=== PATIENT | female | born 1965 | race Caucasian/White ===

== ENCOUNTER 2018-09-01 03:26 | Emergency (ER) | payer BC ==
[2018-09-01] MEDS ORDERED: ONDANSETRON HCL/PF 4 MG/ 2ML VIAL IVP ONE (03:30)
[2018-09-01] MEDS ORDERED: 0.9 % SODIUM CHLORIDE 1,000 ML IV ONE (03:30)
[2018-09-01] MEDS ORDERED: KETOROLAC TROMETHAMINE 30 MG/1ML VIAL IVP ONE (03:30)
[2018-09-01] MEDS ORDERED: fentaNYL CITRATE/PF 100 MCG/2 ML INJ. IVP ONE (03:36)
--- NOTE | 2018-09-01 03:56 | ED Physician Documentation ---
General Adult - HISTORIAN Historian: patient - HPI Stated Complaint: rt side low abd pain Chief Complaint: Abdominal Pain Additional Information: Intro self as CRECHE ATTENDANT. pt presents to the ED via POV c/o RLQ pain x 3 days. Pt reports she passed a kidney stone 3 days ago. 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 pt took ibuprofen at 2100 with some improvement. pt reports chills. pt denies hx of stones previous pt denies current chest pain, dyspnea, syncope/near syncope, headache, dizziness, visual disturbances, n/v/d, fever, rash, sick contacts, trauma. melena or hematochezia, bleeding or easy bruising, change in bowel function. anx iety or depression. ROS Negative unless otherwise specified. - ROS CONST: no problems - PAST HX Past History: other (gerd) Surgeries/Procedures: hysterectomy, other (tubal ligation, hernia, tonsillectomy) Allergies/Adverse Reactions: Allergies Allergy/AdvReac Type Severity Reaction Status Date / Time No Known Allergies Allergy Verified 09/01/18 04:51 Home Medications: Ambulatory Orders Medication Instructions Recorded Aspirin [Adult Aspirin Regimen] 81 mg PO DAILY 09/01/18 Cholecalciferol [Vitamin D-3] 10,000 units PO QDAY 09/01/18 Omeprazole 20 mg PO DAILY 09/01/18 - SOCIAL HX Smoking History: non-smoker Alcohol Use: none Drug Use: none - FAMILY HX Family History: No - REVIEWED ASSESSMENTS Nursing Assessment Reviewed: Yes Vitals Reviewed: Yes Progress - Progress Progress: 0430 pain improved after fentanyl 0530: Dr Garsia urologist accepted pt for transfer to [facility] via ground ALS 0540 pt reports increased pain. Dilaudid 1 mg ordered. ED Results Lab/Radiology - Radiology Radiology Impressions: Report Submission Date: Sep 01, 2018 4:55:48 AM REDUCING SALON ATTENDANT Patient Study Name: GISSELL VELAZQUEZ Date: Sep 01, 2018 4:34:30 AM REDUCING SALON ATTENDANT Modality Type: CT\SR Gender: F Description: CT ABD PELVIS W/ CON : 67 Institution: [facility] Physician: AJ JONES CT of the abdomen and pelvis with contrast Clinical history: Right lower quadrant and right back pain intermittently for 2 days. Contrast administered: 95 mL of Omnipaque. Technique: CT of the abdomen and pelvis is performed with intravenous infusion of contrast. Sagittal and coronal reconstructions were performed by the technologist. Findings: There is minimal atelectasis in the lung bases. Spleen demonstrates normal attenuation without focal defect. Liver is hypodense consistent with steatosis. There is a focal area of greater hypodensity left hepatic lobe possibly representing focal fatty infiltration. Liver is otherwise unremarkable. Gallbladder is normally distended. There is no pancreatic or adr enal abnormality. Left kidney and collecting system are unremarkable. There is right renal cyst and right hydronephrosis with a 7 mm stone at the right ureteropelvic junction. The ureter distal to this is of normal caliber. Bladder is unremarkable. Appendix is visualized and is within normal limits. Gas and stool are present in the colon. There is no significant free fluid in the pelvis or abdomen. The uterus is surgically absent. Impression: 1. 7 mm stone at the right ureteropelvic junction with right obstructive uropathy. 2. Right renal cyst. 3. Hepatic steatosis. 4. Appendix. Electronically signed on Sep 01, 2018 4:55:48 AM REDUCING SALON ATTENDANT by: José Luis Alvarez - Orders Orders: ED Orders Category Date Time Status Place IV Lock 1T Care 09/01/18 03:32 Active CBC/PLATELET/DIFF Routine Lab 09/01/18 03:30 Received CMP Routine Lab 09/01/18 03:30 Received URINALYSIS Routine Lab 09/01/18 Ordered URINE HCG [URINE HCG] Stat Lab 09/01/18 Uncollected 0.9 % Sodium Chloride [Normal Saline] 1,000 ml Med 09/01/18 03:30 Active IV NOW Ketorolac Tromethamine [Toradol] Med 09/01/18 03:30 Discontinued 30 mg IVP NOW ONE Ondansetron HCl/Pf [Zofran 4 mg/2 ml] Med 09/01/18 03:30 Discontinued 4 mg IVP NOW ONE fentaNYL CITRATE/PF [Duragesic] Med 09/01/18 03:36 Discontinued 100 mcg IVP NOW ONE General Adult Physical Exam - PHYSICAL EXAM GENERAL APPEARANCE: mild distress EENT: eye inspection normal, ENT inspection normal, pharynx normal, no signs of dehydration NECK: normal inspection, thyroid normal RESPIRATORY: no resp distress, chest non-tender, breath sounds normal CVS: reg rate & rhythm, heart sounds normal, equal pulses, no murmur, no gallop, PMI nml, no JVD, no friction rub, 24 ABDOMEN: soft, no organomegaly, normal bowel sounds, no abdominal bruit, no distension. No: tenderness BACK: normal inspection, no CVA tenderness SKIN: normal color, diaphoresis, other (warm) EXTREMITIES: non-tender, normal range of motion, no evidence of injury, no edema NEURO: oriented X3, motor nml, sensation nml, mood/affect nml Discharge Clincal Impression: Obstructive uropathy Urolithiasis Qualifiers: Urinary calculus location: upper urinary tract Qualified Code(s): N20.9 - Urinary calculus, unspecified Condition: Stable Disposition: [facility]FER [facility] Palliative/Comfort Care: Palliative Care Decision to Admit: NO Date of Decison to Admit: 09/01/18 Decision Time: 05:44
--- NOTE | 2018-09-01 04:57 | Diagnostic Imaging Report ---
KAREN AJ [facility] [id number] [facility] [address] [address] Report Submission Date: Sep 01, 2018 4:55:48 AM HYDROMETER FINISHER Patient Study Name: GISSELL VELAZQUEZ Date: Sep 01, 2018 4:34:30 AM HYDROMETER FINISHER Modality Type: CT\SR Gender: F Description: CT ABD PELVIS W/ CON : 67 Institution: [facility] Physician: AJ JONES CT of the abdomen and pelvis with contrast Clinical history: Right lower quadrant and right back pain intermittently for 2 days. Contrast administered: 95 mL of Omnipaque. Technique: CT of the abdomen and pelvis is performed with intravenous infusion of contrast. Sagittal and coronal reconstructions were performed by the technologist. Findings: There is minimal atelectasis in the lung bases. Spleen demonstrates normal attenuation without focal defect. Liver is hypodense consistent with steatosis. There is a focal area of greater hypodensity left hepatic lobe possibly representing focal fatty infiltration. Liver is otherwise unremarkable. Gallbladder is normally distended. There is no pancreatic or adrenal abnormality. Left kidney and collecting system are unremarkable. There is right renal cyst and right hydronephrosis with a 7 mm stone at the right ureteropelvic junction. The ureter distal to this is of normal caliber. Bladder is unremarkable. Appendix is visualized and is within normal limits. Gas and stool are present in the colon. There is no significant free fluid in the pelvis or abdomen. The uterus is surgically absent. Impression: 1. 7 mm stone at the right ureteropelvic junction with right obstructive uropathy. 2. Right renal cyst. 3. Hepatic steatosis. 4. Appendix. Electronically signed on Sep 01, 2018 4:55:48 AM HYDROMETER FINISHER by: José Luis COOK
[2018-09-01] MEDS ORDERED: HYDROmorphone HCL/PF 1 MG/ML VIAL IVP ONE (05:40)
[2018-09-01 06:24] VITALS: BP 123/65
[2018-09-01 06:38] LABS: BASOPHILS % 0.4 (0.0-1.5); EOSINOPHILS % 2.5 % (0.0-6.8); MEAN CORPUSCULAR HEMOGLOBIN 28.1 pg (28.0-34.0); MONOCYTES % 6.2 % (0.0-11.0); NEUTROPHILS # 10.2 # k/uL (1.4-7.7)
[2018-09-01 06:39] LABS: eGFR (Non-African) > 60
[2018-09-01 08:07] LABS: APPEARANCE,URINE CLOUDY (CLEAR); COLOR,URINE YELLOW (YELLOW); OCCULT BLOOD,URINE 3+ (NEGATIVE); PH URINE 5.5 (5.0 - 8.0); UROBILINOGEN URINE 0.2 Eu (0.2-1.0)
== END 2018-09-01 06:15 | disposition short-term general hospital (02) ==
LOC: ED 03:26
DX: N20.1 Calculus of ureter (principal); N13.9 Obstructive and reflux uropathy, unspecified; B96.20 Unspecified Escherichia coli [E. coli] as the cause of diseases classified elsewhere
CPT/HCPCS: 36415; 74177; 80053; 81002; 85025; 87086; 87186; 93005; 96374; 96375; 99285; J1170; J1885; J2405; J3010; J7030; Q9967; S1016